=== PATIENT | female | born 1960 | race Caucasian/White ===

== ENCOUNTER → 2025-04-13 | Outpatient (CLI) | payer MEDICARE, SELFPAY ==
[2025-04-13 14:11] LABS: Basophils # (Auto) 0.0 Thou/mm3 (0.0-0.2); Basophils % (Auto) 0 % (0-2.5); Eosinophils # (Auto) 0.1 Thou/mm3 (0.0-0.5); Eosinophils % (Auto) 2 % (0-10); Hematocrit 38.2 % (36.0-46.0); Hemoglobin 13.1 g/dL (12.0-16.0); Immature Granulocytes Auto 0.01 Thou/mm3 (0.00-0.00); Lymphocytes # (Auto) 1.6 Thou/mm3 (1.0-4.8); Lymphocytes % (Auto) 35 % (10-50); Mean Corpuscular HGB Conc 34.3 g/dl (31.0-37.0); Mean Corpuscular Hemoglobin 31.0 pg (25.0-35.0); Mean Corpuscular Volume 90 fL (80-100); Monocytes # (Auto) 0.3 Thou/mm3 (0.0-0.8); Monocytes % (Auto) 7 % (0-12); Neutrophils # (Auto) 2.6 Thou/mm3 (1.8-7.7); Neutrophils % (Auto) 56 % (37-80); Nucleated Red Blood Cell # 0.00 Thou/mm3 (0.00-0.00); Nucleated Red Blood Cell % 0 /100 WBC (0); Platelet Count 135 Thou/mm3 (140-440); RDW Standard Deviation 41.2 fL (36.4-46.3); Red Blood Count 4.23 Miln/mm3 (4.00-5.20); White Blood Count 4.6 Thou/mm3 (3.6-11.0)
[2025-04-13 14:38] LABS: Alanine Aminotransferase 29 U/L (10-49); Albumin, Serum 4.5 gm/dL (3.4-4.8); Albumin/Globulin Ratio 2.0 (1.2-2.2); Alkaline Phosphatase 68 U/L (46-116); Anion Gap 9 (7-16); Aspartate Amino Transferase 26 U/L (0-34); BUN/Creatinine Ratio 11 Ratio (12-20); Bilirubin,Total 1.0 mg/dL (0.3-1.2); Blood Urea Nitrogen 10 mg/dL (9-23); Calcium 9.7 mg/dL (8.3-10.6); Calcium (Corrected) 9.7 mg/dL (8.5-10.1); Carbon Dioxide 26.8 mMol/L (20.0-31.0); Cardiac Risk Estimate 3.3 RATIO (3.7-5.6); Chloride 108 mMol/L (98-107); Cholesterol 180 mg/dL (132-200); Creatinine (Component) 0.9 mg/dL (0.6-1.3); Free T4 (Free Thyroxine) 1.02 ng/dL (0.89-1.76); Globulin 2.2 gm/dL (2.3-3.5); Glucose 89 mg/dL (74-106); HDL Cholesterol 55 mg/dL (40-60); LDL Cholesterol,Calculated 93 mg/dL (0-130); Osmolality,Calculated 284 (275-295); Potassium 4.2 mMol/L (3.4-5.1); Sodium 144 mMol/L (136-145); Thyroid Stimulating Hormone 2.44 uIU/mL (0.55-4.78); Total Protein 6.7 gm/dL (5.7-8.2); Triglycerides 159 mg/dL (30-150); eGFR > 60 See Note
== END | disposition home or self-care (01) ==
PROVIDERS: PCP Family Medicine; Referring Provider Family Medicine; Visit Provider Family Medicine
DX: E78.2 Mixed hyperlipidemia (principal); R53.82 Chronic fatigue, unspecified; I10 Essential (primary) hypertension
CPT/HCPCS: 36415; 80053; 80061; 84439; 84443; 85025

== ENCOUNTER 2025-04-22 21:01 | Emergency (ER) | payer MEDICARE, SELFPAY ==
[2025-04-22 21:02] VITALS: BMI 30.9
--- NOTE | 2025-04-22 21:03 | EKG_ITS ---
[facility] Test Date: 2025-04-22 Pat Name: CATRINA ARCE Department: Room: - Gender: Female [employer]: : 1960 Requested By: ED Temporary Provider Order Number: [id number] Reading MD: ED Temporary Provider Measurements Intervals Roosevelt Rate: 63 P: 56 ND: 162 QRS: 2 QRSD: 92 T: 55 QT: 377 QTc: 387 Interpretive Statements SINUS RHYTHM NONSPECIFIC ST & T-WAVE ABNORMALITY No previous ECG available for comparison /[id number]/[email or web address]/[id number].pdf
[2025-04-22 21:10] VITALS: BP 165/88; PULSE 62; RESP 18; TEMP 36.9; O2SAT 97
--- NOTE | 2025-04-22 21:20 | XR_ITS ---
Examination: PA chest single view TECHNIQUE: Upright PA chest single view Date and time: April 22, 2025, 9:26 PM Indication cardiac palpitation shortness of breath beginning 3 days ago. FINDINGS: Normal heart size. Lungs are clear. The osseous structures are intact IMPRESSION: No active disease
--- NOTE | 2025-04-22 21:20 | PD.EDRME ---
Rapid Medical Screening Exam [facility] Arrival date/time: 04/22/25 21:01 64F with history of mild MVP and HTN (on atenolol) and anxiety presents to ED with 3 days of intermittent heart palps and SOB, especially when walking/moving. Patient denies CP and URI symptoms. Chief Complaint: Arrhythmia/Palpitations Vital signs: Vital Signs Temperature 98.5 F 04/22/25 21:10 Pulse Rate 62 04/22/25 21:10 Respiratory Rate 18 04/22/25 21:10 Blood Pressure 165/88 H 04/22/25 21:10 Pulse Oximetry (%) 97 04/22/25 21:10 Oxygen Delivery Method Room Air 04/22/25 21:10
[2025-04-22 21:54] LABS: Basophils # (Auto) 0.0 Thou/mm3 (0.0-0.2); Basophils % (Auto) 0 % (0-2.5); Eosinophils # (Auto) 0.1 Thou/mm3 (0.0-0.5); Eosinophils % (Auto) 2 % (0-10); Hematocrit 41.7 % (36.0-46.0); Hemoglobin 14.0 g/dL (12.0-16.0); Immature Granulocytes Auto 0.01 Thou/mm3 (0.00-0.00); Lymphocytes # (Auto) 2.3 Thou/mm3 (1.0-4.8); Lymphocytes % (Auto) 38 % (10-50); Mean Corpuscular HGB Conc 33.6 g/dl (31.0-37.0); Mean Corpuscular Hemoglobin 31.3 pg (25.0-35.0); Mean Corpuscular Volume 93 fL (80-100); Monocytes # (Auto) 0.4 Thou/mm3 (0.0-0.8); Monocytes % (Auto) 7 % (0-12); Neutrophils # (Auto) 3.3 Thou/mm3 (1.8-7.7); Neutrophils % (Auto) 54 % (37-80); Nucleated Red Blood Cell # 0.00 Thou/mm3 (0.00-0.00); Nucleated Red Blood Cell % 0 /100 WBC (0); Platelet Count 150 Thou/mm3 (140-440); RDW Standard Deviation 42.6 fL (36.4-46.3); Red Blood Count 4.48 Miln/mm3 (4.00-5.20); White Blood Count 6.1 Thou/mm3 (3.6-11.0)
[2025-04-22 22:16] LABS: Alanine Aminotransferase 33 U/L (10-49); Albumin, Serum 4.9 gm/dL (3.4-4.8); Albumin/Globulin Ratio 2.1 (1.2-2.2); Alkaline Phosphatase 74 U/L (46-116); Anion Gap 9 (7-16); Aspartate Amino Transferase 32 U/L (0-34); BUN/Creatinine Ratio 9 Ratio (12-20); Bilirubin,Total 1.1 mg/dL (0.3-1.2); Blood Urea Nitrogen 9 mg/dL (9-23); Calcium 10.1 mg/dL (8.3-10.6); Calcium (Corrected) 10.1 mg/dL (8.5-10.1); Carbon Dioxide 29.7 mMol/L (20.0-31.0); Chloride 105 mMol/L (98-107); Creatinine (Component) 1.0 mg/dL (0.6-1.3); Estimated Creatinine Clearance 58.0 mL/min (>60); Globulin 2.3 gm/dL (2.3-3.5); Glucose 110 mg/dL (74-106); Magnesium 2.1 mg/dL (1.6-2.6); Osmolality,Calculated 286 (275-295); Potassium 3.7 mMol/L (3.4-5.1); Sodium 144 mMol/L (136-145); Total Protein 7.2 gm/dL (5.7-8.2); Troponin I < 0.020 ng/mL (0.0-0.045); eGFR > 60 See Note
[2025-04-22 22:23] LABS: B-Type Natriuretic Peptide 35 pg/mL (0-100)
[2025-04-22 23:01] VITALS: BP 143/94; PULSE 61; RESP 18; TEMP 36.4; O2SAT 95
--- NOTE | 2025-04-22 23:12 | PD.EDARRY ---
ED Arrhythmia Palp. RME/HPI General Chief Complaint: Arrhythmia/Palpitations Stated Complaint: PALPITATIONS Arrival date/time: 04/22/25 21:01 RME / HPI RME / HPI narrative: 04/22/25 21:01 64F with history of mild MVP and HTN (on atenolol) and anxiety presents to ED with 3 days of intermittent heart palps and SOB, especially when walking/moving. Patient denies CP and URI symptoms. DR. CORDERO MAIN ED EVALUATION: 64 y/o female with Hx of Mitral Valve Prolapse with palpitations presents to ED c/o intermittent palpitations exacerbated when walking x 3 days. Palpitations worsened today. Patient states she has had palpitations all her life. 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 Denies SOB, dizziness, and chest pain. No other concerns or complaints expressed at this time. Related Data Home Medications ?Medication ?Instructions ?Recorded ?Confirmed rosuvastatin 5 mg tablet (Crestor) 5 mg PO QDAY #0 tabs 09/28/17 Previous Rx's ?Medication ?Instructions ?Recorded ketotifen fumarate 0.025 % (0.035 1 drp Both eyes BID #5 mL 09/28/17 %) eye drops tobramycin 0.3 % eye drops 2 drp Both eyes QID #5 mL 09/28/17 Allergies Allergy/AdvReac Type Severity Reaction Status Date / Time Sulfa (Sulfonamide AdvReac Unknown stomach Verified 04/22/25 21:01 Antibiotics) issues Review of Systems Review of Systems Systems Reviewed: All systems reviewed, normal except as documented Past Medical History Past Medical History CARDIAC: Positive Cardiac Disorders (Mitral Valve Prolapse) ED Exam Narrative Physical exam: Generally patient alert orient x 3 in no obvious distress, heart regular rate and rhythm without rubs or gallops lungs auscultation equal bilaterally abdomen soft bowel sounds present and nontender neurologic exam no focal motor or sensory deficits cranial nerves II through XII grossly intact Course Course Course Narrative: CXR is ordered for determining the etiology of shortness of breath. Quality Measures none Orders Category Date Time Status EKG (ED ONLY) *Do not use* NOW Care 04/22/25 21:03 Completed EKG (ED Only) Stat Exams 04/22/25 21:03 Draft XR chest 1V portable Stat Exams 04/22/25 21:20 Completed B-Type Natriuretic Peptide Stat Lab 04/22/25 21:29 Completed CBC Stat Lab 04/22/25 21:29 Completed Comprehensive Metabolic Panel Stat Lab 04/22/25 21:29 Completed Magnesium Stat Lab 04/22/25 21:29 Completed Troponin I Stat Lab 04/22/25 21:29 Completed Vital Signs Vital signs: Vital Signs Temperature 98.5 F 04/22/25 21:10 Pulse Rate 62 04/22/25 21:10 Respiratory Rate 18 04/22/25 21:10 Blood Pressure 165/88 H 04/22/25 21:10 Pulse Oximetry (%) 97 04/22/25 21:10 Oxygen Delivery Method Room Air 04/22/25 21:10 Arrhythmia/Palpitations MDM Narrative MDM Narrative:: Scribe Attestation: I, Ana Hui, am scribing for and in the presence of Dr. Cordero. Provider Notation: Although this document has been carefully reviewed, there may still be some phonetic and other typographical errors.? These errors are purely grammatical due to imperfections in the software program and should not be construed in any way to? compromise the substance of the patient's medical care during this visit. I interpreted all labs. Troponin is not elevated. EKG is nonischemic without ectopy. Chest x-ray shows normal cardiac silhouette. Electrolytes are within normal limits. Patient currently is on atenolol for blood pressure and heart rate control. I believe the patient may be able to be switched to metoprolol which may be a better drug for her to control the palpitations. She will discuss this with her doctor. Until then she can continue the atenolol. Return to ER as needed or if condition worsens. Patient data External records reviewed:: [facility] previous records Clinical information provided by:: patient Social determinants that could affect healthcare access:: none Patient has the following chronic illnesses:: Mitral Valve Prolapse How is presenting disease/condition affected by chronic disease/condition?: exacerbated by Evaluation data The following diagnostics were reviewed and interpreted by me:: lab results, radiology exam(s) and EKG tracing(s) Lab and/or radiology exams considered but not ordered:: None Interpretation Summary: RADIOLOGY Chest X-Ray: FINDINGS: Normal heart size. Lungs are clear. The osseous structures are intact IMPRESSION: No active disease Medications / Prescriptions Medications or Prescriptions considered but not ordered:: None Medication administrations:: See above if any Consultations Consultation(s) initiated? (list below): No Diagnosis Differential diagnosis arrhythmia/palpitations: palpitations, anxiety, sinus tachycardia, artial fibrillation, artial flutter, ventricular premature beats, supraventricular tachycardia, ventricular tachycardia and WPW Most likely diagnosis given after review of the tests above:: Palpitations Admission Indicated Admission indicated?: not indicated Explain why admission is indicated or not indicated:: Patient does not meet admission criteria. Admission Request Was there a request for admission?: No Disposition Plan Disposition Plan: Discharge Discharge Attestation Discharge Attestation: The patient and all family members were given an opportunity to ask questions and understood the discharge instructions. Discharge instructions specifically effects, indications for sooner follow up or return to the emergency department, and the expected course of current diagnosis. Patient condition: Stable Discharge Plan Plan Patient Disposition: HOME (Self Care) Prescriptions/Referrals Prescriptions/Med Rec: No Action rosuvastatin [Crestor] 5 MG tablet 5 mg PO QDAY Qty: 0 ketotifen fumarate 5 ML drops 1 drp Both eyes BID Qty: 5 0RF tobramycin 5 ML solution 2 drp Both eyes QID Qty: 5 0RF Referrals: Gabriella Clinton MD [Primary Care Provider] - In 1 week Problem List Clinical Impression: Palpitations Patient/Caregiver Discharge Instructions Additional Instructions: Continue current medications. You may continue to take your walks. Follow-up with your doctor and ask him about possibly changing the atenolol to metoprolol. Return to ER as needed or if condition worsens. Print Language: Pashto Stand Alone Forms: [employer] Award Info., Patient Portal Info Letter
== END 2025-04-22 23:51 | disposition home or self-care (01) ==
PROVIDERS: Physician Assistant; Emergency Provider Emergency Medicine; PCP Family Medicine
DX: R00.2 Palpitations (principal); R06.02 Shortness of breath; R94.31 Abnormal electrocardiogram [ECG] [EKG]; I10 Essential (primary) hypertension
CPT/HCPCS: 36415; 71045; 80053; 83735; 83880; 84484; 85025; 93005; 99283

== ENCOUNTER → 2025-04-22 | Outpatient (CLI) | payer MEDICARE, SELFPAY ==
--- NOTE | 2025-04-22 08:45 | XR_ITS ---
Examination: Screening digital mammography, bilateral Computer aided detection 3-D breast Tomosynthesis, bilateral Date and time of exam: April 22, 2025 0817 hours Compared to mammograms dating to April 21, 2020 Indication: Screening Technique: Nonmagnified MLO, CC views of the breasts to been obtained, reconstructed from 3-D Tomosynthesis images. R2 computer aided detection program utilized for evaluation of suspicious masses and/or abnormal calcifications. 3-D Tomosynthesis images obtained. Findings: Scattered areas of fibroglandular density 6:00 nodule right breast 7 mm Benign calcifications Impression: BI-RADS Category 0: Incomplete: Need additional imaging evaluation Recommend right breast sonogram follow-up to document stability of 6:00 nodule lobular margins, 7 x 5 x 6 mm described on right breast sonogram July 22, 2024 and visualized on today's mammogram
== END | disposition home or self-care (01) ==
LOC: CDIM 08:06
PROVIDERS: Referring Provider Family Medicine; Visit Provider Family Medicine
DX: Z12.31 Encounter for screening mammogram for malignant neoplasm of breast (principal); R92.1 Mammographic calcification found on diagnostic imaging of breast; N63.15 Unspecified lump in the right breast, overlapping quadrants
CPT/HCPCS: 77063; 77067

== ENCOUNTER → 2025-05-10 | Outpatient (CLI) | payer MEDICARE, SELFPAY ==
--- NOTE | 2025-05-10 08:45 | XR_ITS ---
Examination: Breast ultrasound, unilateral, right complete Date and time of exam: May 10, 2025 0852 hours INDICATIONS: Mammogram April 22, 2025 right breast nodule 6:00 position 7 mm Technique: Real-time castellanos scale ultrasonographic imaging performed right breast including all 4 quadrants as well as nipple retroareolar and axillary region. Findings: 6:00 cyst 5 x 5 mm 9:00 cyst 4 x 5 mm No solid nodules IMPRESSION: BI-RADS Category 2: Benign findings
== END | disposition home or self-care (01) ==
LOC: CDIM 08:23
PROVIDERS: PCP Family Medicine; Referring Provider Family Medicine; Visit Provider Family Medicine
DX: N63.10 Unspecified lump in the right breast, unspecified quadrant (principal)
CPT/HCPCS: 76641

== ENCOUNTER → 2025-07-19 | Outpatient (CLI) | payer MEDICARE, SELFPAY ==
[2025-07-25 06:39] LABS: Fecal Globin Result NOT DETECTED (NOT DETECTED)
== END | disposition home or self-care (01) ==
LOC: SLDO 10:15
PROVIDERS: Referring Provider Family Medicine; Visit Provider Family Medicine
DX: Z12.11 Encounter for screening for malignant neoplasm of colon (principal)
CPT/HCPCS: 82274; G0328